=== PATIENT | male | born 1995 | race Caucasian/White ===

== ENCOUNTER 2021-02-12 21:03 | Emergency (ER) | payer SELFPAY ==
[~2021-02-12] VITALS: Ht 177.8 cm; Wt 80.1 kg
[2021-02-12 21:04] VITALS: BP 132/64
== END 2021-02-12 23:11 | disposition left against medical advice (07) ==
LOC: M ED 21:03
DX: Z53.21 Procedure and treatment not carried out due to patient leaving prior to being seen by health care provider (principal)

== ENCOUNTER → 2021-10-20 | Outpatient (CLI) | payer OTHER ==
[2021-10-20 13:25] LABS: BASO # 0.1 10^3/uL (0.0-0.2); BASO % 0.8 % (0.0-1.0); EOS # 0.1 10^3/uL (0.0-0.5); EOS % 1.4 % (0.0-3.0); HEMOGLOBIN 15.6 g/dl (13.5-17.5); LYMPH # 2.5 10^3/uL (1.5-5.0); MEAN CORPUSCULAR HEMOGLOBIN 32.2 pg (27.0-33.0); MEAN CORPUSCULAR HGB CONC 33.9 g/dl (32.0-36.5); MONO # 0.8 10^3/uL (0.0-0.8); MONO % 8.2 % (2.0-8.0); NEUTROPHILS # 5.8 10^3/uL (1.5-8.5); NEUTROPHILS % 62.4 % (36.0-66.0); PLATELET COUNT, AUTOMATED 222 10^3/uL (150-450); RED BLOOD COUNT 4.84 10^6/uL (4.30-6.10); WHITE BLOOD COUNT 9.3 10^3/uL (4.0-10.0)
[2021-10-20 13:59] LABS: ERYTHROCYTE SEDIMENTATION RATE 2 mm/hr (0-15)
[2021-10-20 14:28] LABS: ALBUMIN 4.3 GM/DL (3.2-5.2); ALT/SGPT 25 U/L (12-78); BILIRUBIN,TOTAL 1.1 MG/DL (0.2-1.0); BLOOD UREA NITROGEN 15 MG/DL (7-18); CARBON DIOXIDE LEVEL 30 MEQ/L (21-32); CHLORIDE LEVEL 105 MEQ/L (98-107); CHOLESTEROL LEVEL 150 MG/DL (<200); CREATININE FOR GFR 1.22 MG/DL (0.70-1.30); FOLATE 8.2 NG/ML; FREE T4 0.91 NG/DL (0.76-1.46); GLOMERULAR FILTRATION RATE > 60.0 (>60); GLUCOSE, FASTING 92 MG/DL (70-100); HDL CHOLESTEROL 63 MG/DL (>40); LDL CHOLESTEROL 57 MG/DL (<100); NON-HDL-C 87 MG/DL; POTASSIUM SERUM 4.7 MEQ/L (3.5-5.1); RHEUMATOID FACTOR QUANT < 10.0 IU/ML (<15.0); SODIUM LEVEL 139 MEQ/L (136-145); TOTAL PROTEIN 7.4 GM/DL (6.4-8.2); TRIGLYCERIDES LEVEL 149 MG/DL (<150); VITAMIN B12 LEVEL 398 PG/ML
[2021-10-22 00:07] LABS: ANA (HEP2) Negative (.); CYCLIC CITRULLINATED PEPTIDE 3 units (0-19)
== END ==
LOC: M PLALAB 10:37
PROVIDERS: ATTEND Nurse Practitioner Adult Health
DX: D69.8 Other specified hemorrhagic conditions (principal); Z13.220 Encounter for screening for lipoid disorders; Z13.29 Encounter for screening for other suspected endocrine disorder

== ENCOUNTER → 2021-11-23 | Outpatient (CLI) | payer OTHER | LOC: M PLAIMG 15:40 | PROVIDERS: ATTEND Nurse Practitioner Adult Health | DX: M54.2 Cervicalgia (principal) ==